=== PATIENT | female | born 1990 | race Caucasian/White ===

== ENCOUNTER 2017-12-23 05:50 | Emergency (ER) | payer OTHER ==
[~2017-12-23] VITALS: Ht 157.5 cm; Wt 69.8 kg
[~2017-12-23 05:50] MED LIST: PRENATAL VITAMI1 TA1 PO
[2017-12-23 05:57] VITALS: Ht 157.5 cm; Wt 69.8 kg
[2017-12-23 06:43] VITALS: BP 121/77
== END 2017-12-23 06:43 | disposition home or self-care (01) ==
LOC: ED 05:50
DX: H10.89 Other conjunctivitis (principal); J45.909 Unspecified asthma, uncomplicated